=== PATIENT | female | born 1995 | race Caucasian/White ===

== ENCOUNTER → 2025-10-08 | Outpatient (CLI) | payer MEDICAID, SELFPAY ==
--- NOTE | 2025-10-08 16:24 | XR_ITS ---
PA and lateral chest film 10/08/2025 at 4:53 p.m.: CLINICAL INDICATION: Lower respiratory infection for 1 week FINDINGS: Heart size on the PA film appears normal, however a well centered lateral film does tend to suggest left ventricular enlargement with high probability there is very minimal patchy infiltrate in the area of the right middle lobe on the lateral view, this cannot be seen on the PA view although there is obscuration of the right heart border which probably relates to this very minimal infiltrate. The remainder of both lungs and pleural space are clear There is significant S-shaped scoliosis of the spine IMPRESSION: 1. A well centered lateral film strongly suggest the presence of left ventricular enlargement. 2 there are very subtle findings suggesting a patchy infiltrate in the medial segment right middle lobe which would be consistent with a small area of pneumonia
== END | disposition home or self-care (01) ==
LOC: CDIM 16:15
PROVIDERS: Referring Provider Nurse Practitioner Family; Visit Provider Nurse Practitioner Family
DX: I51.7 Cardiomegaly (principal); R91.8 Other nonspecific abnormal finding of lung field
CPT/HCPCS: 71046